=== PATIENT | female | born 1970 | race Caucasian/White ===

== ENCOUNTER 2017-08-29 01:28 | Emergency (ER) | payer OTHER ==
[~2017-08-29] VITALS: Ht 162.6 cm; Wt 63.5 kg
[2017-08-29] MEDS ORDERED: TOBRAMYCIN SULFA5 ML OPHTHALMIC (02:15)
[2017-08-29] MEDS ORDERED: HYDROCODON-ACE1 EAC7 PO (02:15)
[2017-08-29 02:40] VITALS: BP 136/92
== END 2017-08-29 02:40 | disposition home or self-care (01) ==
LOC: M.ERS 01:28
DX: S05.01XA Injury of conjunctiva and corneal abrasion without foreign body, right eye, initial encounter (principal); Z88.0 Allergy status to penicillin; X58.XXXA Exposure to other specified factors, initial encounter; Y93.89 Activity, other specified; Y92.89 Other specified places as the place of occurrence of the external cause; Y99.8 Other external cause status

== ENCOUNTER 2017-12-25 19:30 | Inpatient (IN) | payer OTHER ==
[~2017-12-25] VITALS: Ht 165.1 cm; Wt 63.5 kg
[~2017-12-25 19:30] MED LIST: HYDROCODON-ACE1 EAC7 PO; TOBRAMYCIN SULFA5 ML OPHTHALMIC
[2017-12-25 19:42] VITALS: BP 108/70
[2017-12-25 20:23] LABS: URINE BILIRUBIN NEGATIVE (Negative); URINE BLOOD 3+ (Negative); URINE CLARITY TURBID; URINE GLUCOSE-RANDOM 1+ (Negative); URINE KETONES TRACE (Negative); URINE LEUKOCYTES-REFLEX 1+ (Negative); URINE PROTEIN 3+ (Negative)
[2017-12-25 20:28] LABS: ABSOLUTE BASOPHILS 0.1 thou/uL (0.0-0.2); ABSOLUTE EOSINOPHILS 0.2 thou/uL (0.0-0.7); ABSOLUTE LYMPHOCYTES 1.9 thou/uL (0.8-5.3); ABSOLUTE MONOCYTES 0.7 thou/uL (0.0-1.2); ABSOLUTE NEUTROPHILS 3.1 thou/uL (1.6-8.1); BASOPHILS 1.2 %; EOSINOPHILS 3.6 %; HEMATOCRIT 41.3 % (37.0-47.0); LYMPHOCYTES 31.6 %; MCHC 33.8 g/dL (28.0-37.0); MCV 97.6 fL (80.0-100.0); MONOCYTES 11.2 %; MPV 8.5 fl. (7.2-11.1); NUCLEATED RBCS 0 /100WBC; PLATELET COUNT* 205 thou/uL (150-400); POLYS 52.4 %; RBC 4.23 mil/uL (4.20-5.00); RDW-CV 13.2 % (10.5-14.5); WBC 5.9 thou/uL (4.0-11.0)
[2017-12-25 20:32] LABS: URINE COLOR RED; URINE NITRITE-REFLEX POSITIVE (Negative)
[2017-12-25 20:34] LABS: BACTERIA-REFLEX 1-9 Few /HPF (None Seen); CASTS None Seen /LPF (None Seen); SQUAMOUS NONE SEEN /LPF (0-3); URINE RBC >20 Many /HPF (0-2); URINE WBC-REFLEX 6-15 Few /HPF (0-5)
[2017-12-25 20:35] LABS: CRYSTALS None Seen /LPF (None Seen)
[2017-12-25 20:35] LABS: CALCIUM 8.2 mg/dL (8.5-10.1); POTASSIUM 3.7 mmol/L (3.5-5.1)
[2017-12-25 20:39] LABS: ALBUMIN 4.2 g/dL (3.4-5.0); TOTAL BILIRUBIN 0.4 mg/dL (<0.1-1.0); TOTAL PROTEIN 7.7 g/dL (6.4-8.2)
[2017-12-26 03:29] LABS: HEMATOCRIT 37.4 % (37.0-47.0); HEMOGLOBIN 12.6 gm/dL (12.0-15.0); MCH 33.1 pg (26.0-34.0); MCHC 33.6 g/dL (28.0-37.0); MCV 98.5 fL (80.0-100.0); MPV 8.4 fl. (7.2-11.1); RBC 3.8 mil/uL (4.20-5.00); RDW-CV 13.3 % (10.5-14.5); WBC 9.3 thou/uL (4.0-11.0)
[2017-12-26 03:37] VITALS: BP 99/53
[2017-12-26 03:37] LABS: CALCIUM 8.1 mg/dL (8.5-10.1); CREATININE 0.8 mg/dL (0.6-1.3); POTASSIUM 3.6 mmol/L (3.5-5.1)
[2017-12-26 07:30] VITALS: BP 112/73
[2017-12-26 08:19] LABS: HEMATOCRIT 41.3 % (37.0-47.0); HEMOGLOBIN 13.7 gm/dL (12.0-15.0); MCH 32.7 pg (26.0-34.0); MCHC 33.1 g/dL (28.0-37.0); MCV 98.8 fL (80.0-100.0); MPV 9.6 fl. (7.2-11.1); NUCLEATED RBCS 0 /100WBC; PLATELET COUNT* 133 thou/uL (150-400); RBC 4.18 mil/uL (4.20-5.00); RDW-CV 13.3 % (10.5-14.5); WBC 14.4 thou/uL (4.0-11.0)
[2017-12-26 08:53] LABS: ABSOLUTE LYMPHOCYTES 1.3 thou/uL (0.8-5.3); ABSOLUTE MONOCYTES 0.4 thou/uL (0.0-1.2); ABSOLUTE NEUTROPHILS 12.7 thou/uL (1.6-8.1); ANISOCYTOSIS 1+; PLATELET ESTIMATE DECREASED
[2017-12-26 08:54] LABS: POIKILOCYTOSIS 1+
[2017-12-26 08:55] LABS: CALCIUM 7.7 mg/dL (8.5-10.1); CREATININE 0.7 mg/dL (0.6-1.3); POTASSIUM 4.2 mmol/L (3.5-5.1)
[2017-12-26 08:59] LABS: ALBUMIN 3.5 g/dL (3.4-5.0); TOTAL BILIRUBIN 0.6 mg/dL (<0.1-1.0); TOTAL PROTEIN 6.4 g/dL (6.4-8.2)
[2017-12-26 11:38] VITALS: BP 112/73
[2017-12-26 14:59] LABS: HEMOGLOBIN 12.3 gm/dL (12.0-15.0)
[2017-12-26 17:46] LABS: HEMATOCRIT 38.3 % (37.0-47.0); HEMOGLOBIN 12.8 gm/dL (12.0-15.0); MCH 32.7 pg (26.0-34.0); MCHC 33.5 g/dL (28.0-37.0); MCV 97.6 fL (80.0-100.0); MPV 8.7 fl. (7.2-11.1); RBC 3.93 mil/uL (4.20-5.00); RDW-CV 13.4 % (10.5-14.5); WBC 11.8 thou/uL (4.0-11.0)
[2017-12-26 20:00] VITALS: BP 96/59
[2017-12-27 00:13] VITALS: BP 93/47
[2017-12-27 04:22] VITALS: BP 90/52
[2017-12-27 04:38] LABS: ABSOLUTE LYMPHOCYTES 0.9 thou/uL (0.8-5.3); ABSOLUTE MONOCYTES 1.1 thou/uL (0.0-1.2); ABSOLUTE NEUTROPHILS 9.7 thou/uL (1.6-8.1); BASOPHILS 0.1 %; HEMATOCRIT 37.6 % (37.0-47.0); HEMOGLOBIN 12.6 gm/dL (12.0-15.0); LYMPHOCYTES 7.9 %; MCH 32.9 pg (26.0-34.0); MCHC 33.5 g/dL (28.0-37.0); MCV 98.2 fL (80.0-100.0); MONOCYTES 9.4 %; NUCLEATED RBCS 0 /100WBC; PLATELET COUNT* 168 thou/uL (150-400); POLYS 82.6 %; RBC 3.82 mil/uL (4.20-5.00); RDW-CV 13.1 % (10.5-14.5); WBC 11.8 thou/uL (4.0-11.0)
[2017-12-27 04:54] LABS: ALBUMIN 2.9 g/dL (3.4-5.0); CALCIUM 8.1 mg/dL (8.5-10.1); CREATININE 0.6 mg/dL (0.6-1.3); POTASSIUM 4.1 mmol/L (3.5-5.1); TOTAL BILIRUBIN 0.6 mg/dL (<0.1-1.0); TOTAL PROTEIN 5.7 g/dL (6.4-8.2)
[2017-12-27 08:30] VITALS: BP 94/51
[2017-12-27 12:33] VITALS: BP 95/54
--- NOTE | 2017-12-27 13:22 | OP ---
[facility] [address] [place] [address] OPERATIVE REPORT Name: JACQUELYN JIANG Room: [address] IN M.R.#: [id number] Admission: 12/25/17 Attend Phys: Chance Boyd MD Discharge: Date of : 74 Report #: [id number] THIS REPORT FOR: //name// CC: Chance Boyd [facility] physician/PCP DATE OF SERVICE: 12/26/2017 PREOPERATIVE DIAGNOSIS: Blunt left renal trauma with urinary extravasation. POSTOPERATIVE DIAGNOSIS: Blunt left renal trauma with urinary extravasation. PROCEDURE: Cystoscopy, left retrograde pyelogram, left ureteral stent placement. SURGEON: Ari Pandya M.D. ANESTHESIA: General. ESTIMATED BLOOD LOSS: None. DRAINS: 6 x 28 left ureteral stent. SPECIMENS: None. COMPLICATIONS: None. INDICATIONS: This is a 47-year-old female who sustained a fall while mowing her lawn. This resulted in blunt trauma to her left flank. Imaging revealed evidence of a left renal injury with extravasation of contrast medial to the kidney and formation of urinoma and/or hematoma on delayed post-contrast imaging. There was no evidence of a complete disruption as contrast was noted going down the ureter and there was no evidence of obstruction. The patient has been hemodynamically stable and her hemoglobin has been stable. Clinical situation and options for management were discussed with the patient and her family members and it was recommended that she undergo cystoscopy with left retrograde pyelogram and ureteral stent placement. Reasoning for this was explained. Alternatives were explained. Risks of the proposed procedure were explained including but not limited to bleeding, possibly necessitating further kidney surgery, even including nephrectomy, infection, anesthesia, cardiopulmonary and vascular events, injury to urethra, bladder, ureter, kidney and surrounding structures, stent discomfort. We also discussed the need for timely followup regarding any stent left in place and the reasoning for that. We discussed the need for followup imaging as well. The patient and her family voiced clear understanding of this [place] [address] OPERATIVE REPORT Name: JACQUELYN JIANG Room: [address] IN M.R.#: [id number] Admission: 12/25/17 Attend Phys: Chance Boyd MD Discharge: Date of : 74 Report #: [id number] DESCRIPTION OF PROCEDURE: The patient was pretreated with IV Cipro. Her urine culture is pending. After induction of general anesthesia, she was positioned, prepped and draped in the lithotomy position. Timeout procedure was performed. Exam under anesthesia does not reveal any evidence of urethral or bladder injury. Cystourethroscopy was performed with a 21-Wallisian sheath and 30- and 70-degree cystoscopes. The urethra and bladder are normal on systematic examination. The ureteral orifices are orthotopic. Efflux of urine was noted from both ureters and I did not see any definite blood from the left side or the right side. Fluoroscopic imaging was performed over the left renal shadow and the expected course of the ureter and I do not appreciate any residual contrast in these areas. The ureter was then cannulated with a 5-Wallisian ureteral catheter and contrast was given gently in a retrograde fashion. The ureter is of normal course and caliber in its entirety and the collecting system is normal and nondilated. I do not appreciate any extravasation with gentle contrast administration. Given the clinical situation and the findings on CT scan, I elected to place a ureteral stent. Fluoroscopic monitoring was used to advance a sensor wire into the collecting system on the left. This was used for placement of a 6 x 28 left ureteral stent with good position confirmed in the renal pelvis fluoroscopically and in the bladder visually. Bloody drainage was initially noted from the stent. Within a few minutes, this turned to clear drainage. The bladder was left partially filled and the scope was removed. A 16-Wallisian Lopez catheter was placed. Returning fluid was clear. The patient tolerated the procedure well and was taken to the recovery room in stable condition. Plan will be to monitor her clinically and then ultimately set up a repeat imaging prior to considering stent removal. Of note, when I reviewed the images saved to the PACS, I noted that several of the images I took were not present on the saved images and that some images and the patient's file are not hers. I alerted the Radiology technicians to this. Reviewing the images, it is clear that images 10, 11 and 12 are images from this patient's procedure, but that 1 through 9 are from another procedure or procedures. The images that I took pre-contrast and of the lower parts of the ureter are unable to be found. Again, images 10 through 12 are present and were reviewed with the family. <ELECTRONICALLY SIGNED> By: Ari Pandya MD 12/27/17 1322 [id number] Pandya MD /karishma
[2017-12-27 16:36] VITALS: BP 88/41
[2017-12-27 20:00] VITALS: BP 100/49
[2017-12-28 00:37] VITALS: BP 94/49
[2017-12-28 04:54] VITALS: BP 82/55
[2017-12-28 04:55] LABS: HEMATOCRIT 35.2 % (37.0-47.0); HEMOGLOBIN 11.8 gm/dL (12.0-15.0); MCHC 33.5 g/dL (28.0-37.0); MCV 98.6 fL (80.0-100.0); RBC 3.56 mil/uL (4.20-5.00); RDW-CV 13.3 % (10.5-14.5); WBC 6.4 thou/uL (4.0-11.0)
[2017-12-28 05:06] LABS: CALCIUM 7.7 mg/dL (8.5-10.1); CREATININE 0.7 mg/dL (0.6-1.3); POTASSIUM 4.1 mmol/L (3.5-5.1)
[2017-12-28 05:55] VITALS: BP 91/43
[2017-12-28 09:00] VITALS: BP 98/56
[2017-12-28 16:55] VITALS: BP 116/60
[2017-12-28 22:00] VITALS: BP 94/53
[2017-12-29 04:27] LABS: HEMATOCRIT 37.5 % (37.0-47.0); HEMOGLOBIN 12.5 gm/dL (12.0-15.0); MCHC 33.4 g/dL (28.0-37.0); MCV 98.6 fL (80.0-100.0); MPV 9.1 fl. (7.2-11.1); RBC 3.8 mil/uL (4.20-5.00); RDW-CV 13.4 % (10.5-14.5); WBC 5.9 thou/uL (4.0-11.0)
[2017-12-29 07:59] VITALS: BP 94/54
[2017-12-29] MEDS ORDERED: MIRALAX17 GM PO (11:10)
[2017-12-29] MEDS ORDERED: CIPRO500 MG PO (11:13)
[2017-12-29] MEDS ORDERED: IBUPROFEN 200200 M1 PO (11:15)
[2017-12-29] MEDS ORDERED: TYLENOL325 MG PO (11:16)
[2017-12-29] MEDS ORDERED: LEVSIN0.125 MG PO (11:17)
[2017-12-29] MEDS ORDERED: NORCO 5-325 TA1 EACH PO (11:18)
[2017-12-29 12:39] VITALS: BP 94/54
[2017-12-29 12:43] VITALS: BP 94/54
[2017-12-29 14:13] VITALS: BP 94/54
== END 2017-12-29 14:15 | disposition home or self-care (01) | DRG 698 ==
LOC: M.ERS 19:30 → M.TBA-ER 22:31 → M.TBA 12-26 14:07 → M.ORTHSURG 12-26 15:33
PROVIDERS: Emergency Medicine; Internal Medicine; Nurse Practitioner Family; Urology; ADMIT Internal Medicine
PROC: 0T778DZ Dilation of Left Ureter with Intraluminal Device, Via Natural or Artificial Opening Endoscopic (ICD-10-PCS; principal; 2017-12-25)
PROC: BT1F1ZZ Fluoroscopy of Left Kidney, Ureter and Bladder using Low Osmolar Contrast (ICD-10-PCS; principal; 2017-12-25)
DX: S37.032A Laceration of left kidney, unspecified degree, initial encounter (principal); R65.11 Systemic inflammatory response syndrome (SIRS) of non-infectious origin with acute organ dysfunction; N17.9 Acute kidney failure, unspecified; R39.0 Extravasation of urine; N39.0 Urinary tract infection, site not specified; T14.8XXA Other injury of unspecified body region, initial encounter; W18.09XA Striking against other object with subsequent fall, initial encounter; F17.210 Nicotine dependence, cigarettes, uncomplicated; Y93.89 Activity, other specified; Y92.89 Other specified places as the place of occurrence of the external cause; Y99.8 Other external cause status; Z88.0 Allergy status to penicillin; Z82.49 Family history of ischemic heart disease and other diseases of the circulatory system; Z80.8 Family history of malignant neoplasm of other organs or systems; Z83.3 Family history of diabetes mellitus

== ENCOUNTER 2018-01-09 11:37 | Inpatient (IN) | payer OTHER ==
[~2018-01-09] VITALS: Ht 162.6 cm; Wt 63.5 kg
--- NOTE | ~2018-01-09 | EKG ---
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
[2018-01-09 08:00] VITALS: BP 99/55
[~2018-01-09 11:37] MED LIST changes: +CIPRO500 MG PO; +IBUPROFEN 200200 M1 PO; +LEVSIN0.125 MG PO; +MIRALAX17 GM PO; +NORCO 5-325 TA1 EACH PO; +TYLENOL325 MG PO
[2018-01-09 11:47] VITALS: BP 103/57
[2018-01-09 11:59] LABS: URINE BILIRUBIN NEGATIVE (Negative); URINE BLOOD 3+ (Negative); URINE CLARITY CLEAR; URINE COLOR YELLOW; URINE GLUCOSE-RANDOM NEGATIVE (Negative); URINE KETONES 1+ (Negative); URINE LEUKOCYTES 2+ (Negative); URINE NITRITE POSITIVE (Negative); URINE PROTEIN 3+ (Negative); URINE SPECIFIC GRAVITY 1.025 (1.005-1.030); URINE UROBILINOGEN 0.2 E.U./dl (0.2-1.0)
[2018-01-09 12:17] LABS: SQUAMOUS 0-3 Few /LPF (0-3)
[2018-01-09 12:18] LABS: CASTS None Seen /LPF (None Seen); CRYSTALS None Seen /LPF (None Seen); MUCUS 0-3 Light strn/LPF (None Seen); URINE WBC 6-15 Few /HPF (0-5)
[2018-01-09 12:36] LABS: HEMATOCRIT 39.1 % (37.0-47.0); HEMOGLOBIN 13.1 gm/dL (12.0-15.0); MCH 32.6 pg (26.0-34.0); MCHC 33.6 g/dL (28.0-37.0); MCV 96.9 fL (80.0-100.0); MPV 8.8 fl. (7.2-11.1); NUCLEATED RBCS 0 /100WBC; PLATELET COUNT* 271 thou/uL (150-400); RBC 4.03 mil/uL (4.20-5.00); RDW-CV 13.1 % (10.5-14.5)
[2018-01-09 12:55] LABS: CALCIUM 8.4 mg/dL (8.5-10.1); POTASSIUM 3.2 mmol/L (3.5-5.1)
[2018-01-09 13:00] LABS: ALBUMIN 3.5 g/dL (3.4-5.0); TOTAL BILIRUBIN 0.7 mg/dL (<0.1-1.0); TOTAL PROTEIN 6.5 g/dL (6.4-8.2)
[2018-01-09 13:16] LABS: ABSOLUTE BASOPHILS 0.2 thou/uL (0.0-0.2); ABSOLUTE EOSINOPHILS 0.2 thou/uL (0.0-0.7); ABSOLUTE LYMPHOCYTES 2.4 thou/uL (0.8-5.3); ABSOLUTE NEUTROPHILS 16.2 thou/uL (1.6-8.1)
[2018-01-09 13:17] LABS: PLATELET ESTIMATE ADEQUATE
--- NOTE | 2018-01-09 13:48 | NUR ---
KIMBERLY NOTIFIED UPON PT RETURN FROM CT. PT CONNECTED TO BP AND PULSE OX SHE WAS PRIOR TO GOING TO CT
[2018-01-09 15:49] VITALS: BP 96/56
[2018-01-09 16:00] VITALS: BP 160/60; BP 99/55
[2018-01-09 18:00] VITALS: BP 95/57
--- NOTE | 2018-01-09 19:50 | NUR ---
ASSUMED CARE @ 1600. PT ORIENTED TO ROOM. VS OBTAINED. CALL LIGHT WITHIN REACH.
--- NOTE | 2018-01-09 19:51 | NUR ---
PT ALERT AND ORIENTED X 4. ADMINISTERED IV ZOFRAN FOR NAUSEA AND IV MORPHINE FOR PAIN. PT GIVEN TYLENOL FOR ELEVATED TEMP. OF 102.5. IVF INFUSING CURRENLY AT 130 MLS/HR. UP TO BR WITH SBA X 1. NPO AFTER MIDNIGHT. SEPSIS PROTOCOL IN EFFECT. HOURLY ROUNDS MAINTAINED. WILL USE CALL LIGHT FOR ASSIST. CALL LIGHT WITHIN REACH. NURSING TO CONTINUE TO MONITOR.
[2018-01-09 20:00] VITALS: BP 95/55
[2018-01-09 20:04] LABS: APTT 33.8 Seconds (25.0-31.3); INR 1.2; PROTIME 12.4 Seconds (9.20-11.50)
[2018-01-10] VITALS: BP 93/57
[2018-01-10 01:38] VITALS: BP 96/54
--- NOTE | 2018-01-10 04:23 | NUR ---
PATIENT REMAINS ALERT AND ORIENTED. ON SEPSIS PROTOCOL.BP 93/57, HR 94 FEBRILE AT BEGINNING OF SHIFT 102.5, CURRENT TEMP 98.8.RA SAT 98% TYLENOL AND MORPHINE FOR HEADACHE. PATIENT HAS VOIDED X2. LOOSE STOOL X1. NEW IV PLACED IN LEFT FOREARM. NS AT 130MLS. IV ABX INFUSED ORDERED. PATIENT ABLE TO EAT DINNER AROUND 1999. POTASSIUM REPLACED. REDRAW THIS AM. REFUSES SCD'S-EDUCATION GIVEN. AMBULATES WITH STANDBY ASSIST. CALL LIGHT WITHIN REACH. WILL CONTINUE TO MONITOR.
[2018-01-10 04:29] VITALS: BP 99/47
--- NOTE | 2018-01-10 06:43 | NUR ---
HOURLY ROUNDING COMPLETED
[2018-01-10 07:51] LABS: ABSOLUTE BASOPHILS 0.1 thou/uL (0.0-0.2); ABSOLUTE EOSINOPHILS 0.1 thou/uL (0.0-0.7); ABSOLUTE LYMPHOCYTES 1.3 thou/uL (0.8-5.3); ABSOLUTE MONOCYTES 1.6 thou/uL (0.0-1.2); ABSOLUTE NEUTROPHILS 11.5 thou/uL (1.6-8.1); BASOPHILS 0.4 %; EOSINOPHILS 0.6 %; HEMATOCRIT 33.7 % (37.0-47.0); HEMOGLOBIN 11.2 gm/dL (12.0-15.0); MCH 32.5 pg (26.0-34.0); MCHC 33.2 g/dL (28.0-37.0); MCV 97.9 fL (80.0-100.0); MONOCYTES 11.1 %; MPV 9.3 fl. (7.2-11.1); NUCLEATED RBCS 0 /100WBC; PLATELET COUNT* 241 thou/uL (150-400); POLYS 78.9 %; RBC 3.45 mil/uL (4.20-5.00); RDW-CV 13.4 % (10.5-14.5); WBC 14.5 thou/uL (4.0-11.0)
--- NOTE | 2018-01-10 07:57 | CON ---
[address] [address] CONSULTATION Name: JACQUELYN JIANG Room: [address] IN .R.#: [id number] Admission: 01/09/18 Attend Phys: Jo-Ann Adame Discharge: Date of : 74 Report #: [id number] THIS REPORT FOR: //name// CC: [facility] physician/PCP Behzad Hall DATE OF SERVICE: 01/09/2018 INFECTIOUS DISEASE CONSULTATION ATTENDING PHYSICIAN: Behzad Hall D.O. REASON FOR EVALUATION: Complicated urinary tract infection. HISTORY OF PRESENT ILLNESS: Chart reviewed, the patient examined. This is a 47-year-old female without significant medical history, who sustained injury as a result of a fall, suspected kidney laceration and was evaluated and had a stent placed in the left ureter. She generally had ongoing issue with discomfort, had increasing pain in the left flank recently, worsening anorexia with poor p.o. intake. Did develop some frequency and burning with urination as well. She was evaluated and was found to have marked hematuria as well as some pyuria, noted to have a lactic acidemia as well. Elevated white count of 20,000. This was felt to be on the basis of complicated urinary tract infection. She was admitted to the hospital and given a dose of cefepime started empirically. She is in moderate distress at this point, complains of pain. She has not been noted to be febrile, perhaps mildly encephalopathic. Denies any pulmonary-related complaints. ALLERGIES: DESCRIBED URTICARIA WITH PENICILLINS A TEENAGER. CURRENT MEDICATIONS: Medicines include cefepime, p.r.n. analgesics and antiemetics. PAST MEDICAL HISTORY: Otherwise unremarkable, except for the last 2 weeks, suspected kidney laceration. SOCIAL HISTORY: Smokes cigarettes, occasional ethanol. FAMILY HISTORY: Noncontributory. REVIEW OF SYSTEMS: As above. PHYSICAL EXAMINATION: GENERAL: She is in moderate distress at this point secondary to the pain. She states she feels chilled. She keeps her eyes closed mostly during the interview, otherwise, appears [place] [address] CONSULTATION Name: JACQUELYN JIANG Room: [address]#: [id number] Admission: 01/09/18 Attend Phys: Jo-Ann Adame Discharge: Date of : 74 Report #: [id number] VITAL SIGNS: Temperature 98.3, pulse 95, respirations 16 and blood pressure 93/56. SKIN: Warm, dry. No rashes. HEENT: Otherwise, unremarkable. NECK: Supple. LUNGS: Diminished breath sounds, occasional crackles at the bases. HEART: Regular. Borderline tachycardic. I do not appreciate a murmur. ABDOMEN: Mildly distended. There is some tenderness, although there are no overt peritoneal signs. GENITOURINARY: Deferred. RECTAL: Deferred. LABORATORY DATA: Again, lactic acid initially 2.2, repeat was 1.9. CT of the pelvis noted left double-J ureteral stent. CBC: White count of 20.0, H and H 13.1 and 39.1 and platelets of 271,000. Electrolytes: Sodium 137, potassium 3.2, chloride 100, bicarbonate is 27, anion gap of 10, BUN and creatinine 13 and 1.0 and glucose of 107. LFTs unremarkable. Albumin of 3.5. Total protein 6.5. Estimated GFR 60. Urinalysis 3+ protein, 3+ blood and 6-15 white cells. Cultures pending. ASSESSMENT AND PLAN: Complicated urinary tract infection, has ureteral stent and gross hematuria. We will continue empiric therapy. Apparently, no hypersensitivity on penicillin and beta lactams at this point. We will continue the presumption that this is due to urinary tract infection. There was discussion about timing of the removal of the stent as well. We will follow. <ELECTRONICALLY SIGNED> By: Floyd Cotton MD 01/10/18 [id number] Cotton MD /nt
[2018-01-10 08:00] VITALS: BP 96/55
[2018-01-10 08:16] LABS: ALBUMIN 2.6 g/dL (3.4-5.0); CALCIUM 7.6 mg/dL (8.5-10.1); CREATININE 0.7 mg/dL (0.6-1.3); TOTAL BILIRUBIN 0.5 mg/dL (<0.1-1.0); TOTAL PROTEIN 5.9 g/dL (6.4-8.2)
--- NOTE | 2018-01-10 12:00 | NUR ---
PT.ALERT AND ORIENTED. INTRODUCED ROLE OF CM. SHE SAID SHE LIVES ALONE. HER PARENTS AND FRIENDS ARE SUPPORTIVE. SHE WORKS OUTSIDE THE HOME. SHE HAS NO HX OF DME OR HH. SHE SHOULD NOT HAVE ANY DISCHARGE NEEDS.
[2018-01-10 14:30] LABS: APTT 34.5 Seconds (25.0-31.3); INR 1.2; PROTIME 12.2 Seconds (9.20-11.50)
[2018-01-10 16:00] VITALS: BP 94/60
--- NOTE | 2018-01-10 18:43 | NUR ---
SHIFT NOTE - CXR DONE THIS SHIFT. TYLENOL GIVEN BEGINNING OF THIS SHIFT FOR 100.5. TEMP DOWN TO 98.6 AT 1200. IV MORPHINE GIVEN TO PT MULTIPLE TIMES THIS SHIFT. PT TO AMBULATE TO BR WITH ASSIST. NO PROBLEMS.
[2018-01-10 22:09] VITALS: BP 100/53
[2018-01-11 01:30] VITALS: BP 99/59
[2018-01-11 04:45] VITALS: BP 105/57
--- NOTE | 2018-01-11 04:54 | NUR ---
ALERT AND ORIENTED X4. TYLENOL GIVEN FOR ELEVATED TEMPATURE. IV MEDICATION GIVEN TO HELP WITH PAIN. IVF INFUSING WITHOUT DIFFICULTY. UP AD PHILLIP WITHOUT DIFFICULT. CONTINUES TO RECEIVE IV ANTIBIODICS. WILL CONTINUES TO MONITOR. CALL LIGHT WITHIN REACH.
--- NOTE | 2018-01-11 05:09 | NUR ---
NO C/O DIFFICULTY WITH VOIDING.
[2018-01-11 05:58] LABS: HEMATOCRIT 30.4 % (37.0-47.0); HEMOGLOBIN 10.2 gm/dL (12.0-15.0); MCH 32.9 pg (26.0-34.0); MCHC 33.4 g/dL (28.0-37.0); MCV 98.5 fL (80.0-100.0); MPV 9.1 fl. (7.2-11.1); RBC 3.09 mil/uL (4.20-5.00); RDW-CV 13.2 % (10.5-14.5); WBC 8.8 thou/uL (4.0-11.0)
[2018-01-11 06:04] LABS: CALCIUM 7.7 mg/dL (8.5-10.1); CREATININE 0.5 mg/dL (0.6-1.3); MAGNESIUM 1.6 mg/dL (1.8-2.4); POTASSIUM 3.7 mmol/L (3.5-5.1)
[2018-01-11 08:00] VITALS: BP 93/57
[2018-01-11 16:45] VITALS: BP 103/60
--- NOTE | 2018-01-11 17:54 | NUR ---
SHIFT NOTE - PT TOLERATING PO FLUIDS. GIVEN ZOFRAN IV X 2 AND MORPHINE IV X 1 THIS SHIFT. AMBULATING UP TO BR WITHOUT DIFFICULTY.
[2018-01-11 20:00] VITALS: BP 97/49
[2018-01-12 00:29] VITALS: BP 94/61
[2018-01-12 03:55] LABS: HEMATOCRIT 32.6 % (37.0-47.0); HEMOGLOBIN 10.9 gm/dL (12.0-15.0); MCH 32.6 pg (26.0-34.0); MCHC 33.3 g/dL (28.0-37.0); MCV 97.8 fL (80.0-100.0); MPV 9.2 fl. (7.2-11.1); RBC 3.33 mil/uL (4.20-5.00)
[2018-01-12 04:14] LABS: CALCIUM 7.7 mg/dL (8.5-10.1); CREATININE 0.6 mg/dL (0.6-1.3); MAGNESIUM 1.8 mg/dL (1.8-2.4); POTASSIUM 3.8 mmol/L (3.5-5.1)
--- NOTE | 2018-01-12 07:59 | NUR ---
PATIENT RESTING QUIETLY ON HOURLY ROUND THROUGHOUT NIGHT. DENIED NEED FOR PAIN MEDICATION. NO C/O N/V. MESSAGE LEFT FOR DR REGARDING ELEVATED TEMPATURE. UP AD PHILLIP TO BATHROOM. IVF INFUSING WITHOUT DIFFICULTY. CONTINUES IN IV ANTIBIODICS CALL LIGHT WITHIN REACH.
[2018-01-12 09:00] VITALS: BP 104/63
--- NOTE | 2018-01-12 14:02 | EKG ---
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 01/12/18 1402 D: 09/900 0 Jerson Aguilar MD, FAC /EPI
[2018-01-12 16:00] VITALS: BP 105/66
--- NOTE | 2018-01-12 17:35 | NUR ---
PATIENT HAS BEEN ALERT AND ORIENTED TODAY VERY PLEASANT. PATIENT HAS BEEN UP WALKING IN THE HALLWAYS AND IS FEELING BETTER. VITAL SIGNS HAVE BEEN STABLE ON ROOM AIR. NO COMPLAINTS OF PAIN TODAY. PATIENT IS ANXIOUS IS TO DISCHARGE TO HOME. CALL LIGHT IS IN REACH, WILL CONTINUE TO MONITOR.
[2018-01-12 21:23] VITALS: BP 110/70
[2018-01-13] VITALS (7 sets, daily range): BP systolic 97–112; BP diastolic 58–72
--- NOTE | 2018-01-13 06:05 | NUR ---
ALERT AND ORIENTED X4. UP AD PHILLIP AMBULATING IN HALLWAY. CONTINUES ON IV ANTIBIODICS. DENIES NEED FOR PAIN MEDICATION OR NAUSEA MEDICATION. CALL LIGHT WITHIN REACH. PROGRESSING TOWARD DISCHARGE GOAL.
--- NOTE | 2018-01-13 09:06 | NUR ---
PT ORDERS RECEIVED FOR EVALUATE FOR MOBILITY AND DISCHARGE PLANNING. PT IS UP AD PHILLIP IN ROOM W/O DME SUPPORT, STABLE FOR TRANSFERS AND GAIT. PT DOES NOT FEEL THERAPY SERVICES ARE INDICATED. SPOKE W/ DR SMYTH REGARDING PT'S CURRENT STATUS. DR SMYTH APPROVES DEFERRAL OF PT EVALUATION AND SERVICES DUE PT'S PRESENT LEVEL OF FUNCTION.
[2018-01-13] MEDS ORDERED: CEFUROXIME500 MG PO (11:38)
--- NOTE | 2018-01-13 13:03 | NUR ---
PT GIVEN DISCHARGE INFORMATION AT THIS TIME. PRESCRIPTIONS GIVEN. IV REMOVED. PT LEFT WITH FRIEND TO HOME CARE.
== END 2018-01-13 13:36 | disposition home or self-care (01) | DRG 871 ==
LOC: M.ERS 11:37 → M.TBA-ER 14:43 → M.ORTHSURG 14:43 → M.3W 01-10 16:16
PROVIDERS: Family Medicine; Nurse Practitioner Family; ADMIT Internal Medicine
DX: A41.9 Sepsis, unspecified organism (principal); J15.6 Pneumonia due to other Gram-negative bacteria; J15.9 Unspecified bacterial pneumonia; S37.062A Major laceration of left kidney, initial encounter; N39.0 Urinary tract infection, site not specified; E44.0 Moderate protein-calorie malnutrition; N12 Tubulo-interstitial nephritis, not specified as acute or chronic; F17.210 Nicotine dependence, cigarettes, uncomplicated; N28.89 Other specified disorders of kidney and ureter; E87.6 Hypokalemia; D18.09 Hemangioma of other sites; K76.9 Liver disease, unspecified; E83.42 Hypomagnesemia; Z88.0 Allergy status to penicillin; Z79.899 Other long term (current) drug therapy; Z82.49 Family history of ischemic heart disease and other diseases of the circulatory system; Z83.3 Family history of diabetes mellitus; Z28.21 Immunization not carried out because of patient refusal; Z68.24 Body mass index [BMI] 24.0-24.9, adult